=== PATIENT | male | born 1980 | race African-American/Black ===

== ENCOUNTER 2023-03-03 08:21 | Day surgery (SDC) | payer OTHER ==
[~2023-03-03] VITALS: Ht 188 cm; Wt 93.4 kg
[2023-03-03 12:21] VITALS: BP 118/66
== END 2023-03-03 12:13 | disposition home or self-care (01) ==
LOC: ORM 08:21
PROVIDERS: ATTEND Student in an Organized Health Care Education/Training Program
DX: M25.551 Pain in right hip (principal); G89.4 Chronic pain syndrome; M16.51 Unilateral post-traumatic osteoarthritis, right hip
CPT/HCPCS: Q9967